=== PATIENT | female | born 1960 | race American Indian/Alaskan Native ===

== ENCOUNTER 2016-07-10 13:26 | Outpatient (CLI) | payer BC ==
[2016-07-10] MEDS ORDERED: NACL ONE (13:53)
--- NOTE | 2016-07-10 14:16 | Cat Scan Report ---
CTA CHEST: History: Chest pain Technique: Helical CT following IV contrast. Pulmonary embolus protocol. Sagittal and coronal reformatted images. Rotational MIP images. Findings: Compared to 09/25/15 exam which was positive for pulmonary emboli. Contrast bolus is satisfactory. No pulmonary embolus is identified. The thyroid gland, tracheobronchial tree, esophagus, heart, pericardium, mediastinal vessels, lung vidales and bony thorax are unremarkable. Impression: No evidence for pulmonary embolus. Unremarkable CT chest with contrast.
== END 2016-07-10 13:27 | disposition home or self-care (01) ==
LOC: CT 13:26
PROVIDERS: ATTEND Specialist
DX: I26.99 Other pulmonary embolism without acute cor pulmonale (principal)
CPT/HCPCS: 71275; Q9967

== ENCOUNTER 2016-08-11 08:21 | Outpatient (CLI) | payer BC ==
--- NOTE | 2016-08-12 13:37 | Vascular Lab Report ---
LOWER EXTREMITY VENOUS DUPLEX: REASON FOR EXAM: History of DVT. COMMENTS ON THE RIGHT: All veins visualized are freely compressible without evidence of internal echogenicity. Flow is spontaneous and phasic throughout. COMMENTS ON THE LEFT: Chronic nonocclusive deep venous stenosis is noted in the distal femoral vein. The remaining veins visualized are freely compressible without evidence of internal echogenicity. Spontaneous and phasic flow is present proximally. IMPRESSION: Chronic venous thrombosis in the left lower extremity
== END 2016-08-11 08:22 | disposition home or self-care (01) ==
LOC: VAS 08:21
PROVIDERS: ATTEND Specialist
DX: I82.503 Chronic embolism and thrombosis of unspecified deep veins of lower extremity, bilateral (principal)
CPT/HCPCS: 93970

== ENCOUNTER 2017-03-09 06:18 | Emergency (ER) | payer BC ==
[2017-03-09 07:10] LABS: Basophils % (Auto) 0.7 % (0.0-1.8); Hematocrit 41.7 % (30.3-42.9); Hemoglobin 13.7 gm/dl (10.1-14.3); Mean Corpuscular HGB Conc 33 % (30-34); Mean Corpuscular Hemoglobin 27 pg (28-32); Mean Corpuscular Volume 82 fl (79-97); Platelet Count 124 K/mm3 (140-440); Red Blood Count 5.09 M/mm3 (3.65-5.03); Red Cell Distribution Width 15.1 % (13.2-15.2); White Blood Count 5.2 K/mm3 (4.5-11.0)
[2017-03-09 07:20] LABS: Anion Gap 13 mmol/L; BUN/Creatinine Ratio 7.27; Blood Urea Nitrogen 8 mg/dL (7-17); Calcium 8.4 mg/dL (8.4-10.2); Carbon Dioxide 24 mmol/L (22-30); Glucose 91 mg/dL (65-100); INR 1.26 (0.87-1.13); Potassium 4.3 mmol/L (3.6-5.0); Sodium 144 mmol/L (137-145)
[2017-03-09 07:21] LABS: Partial Thromboplastin Time 27.4 Sec. (24.2-36.6)
--- NOTE | 2017-03-09 11:04 | Emergency Department Report ---
ED Female HPI - General Chief complaint: Urogenital-Female Stated complaint: BLOOD IN URINE Time Seen by Provider: 03/09/17 10:33 Source: patient Mode of arrival: Ambulatory Limitations: No Limitations - History of Present Illness Initial comments: 57-year-old female history of PE or DVT on Coumadin presented today was blood in the urine that she noticed this morning. Patient denied any hematemesis or hemoptysis no other complaints -: Sudden - Related Data Previous Rx's Medication Instructions Recorded Last Taken Type Pantoprazole [Protonix TAB] 20 mg PO QDAY #30 tablet. 10/06/15 Unknown Rx Warfarin [Coumadin] 5 mg PO DAILY@1700 #7 tablet 10/06/15 Unknown Rx AtorvaSTATin [Lipitor] 40 mg PO QHS 30 Days 02/11/16 Unknown Rx Enoxaparin [Lovenox] 90 mg SQ Q12HR 5 Days 02/11/16 Unknown Rx Indomethacin 50 mg PO Q8H #10 capsule 02/11/16 Unknown Rx Allergies Allergy/AdvReac Type Severity Reaction Status Date / Time No Known Allergies Allergy Unverified 10/20/13 16:34 ED Review of Systems ROS: Stated complaint: BLOOD IN URINE Other details as noted in HPI Comment: All other systems reviewed and negative Constitutional: denies: chills, fever Respiratory: denies: cough, shortness of breath Cardiovascular: denies: chest pain, palpitations Gastrointestinal: denies: abdominal pain, nausea, vomiting Skin: denies: rash ED Past Medical Hx - Past Medical History Previous Medical History?: Yes Hx Congestive Heart Failure: No Hx Diabetes: No Hx Pulmonary Embolism: Yes Hx Asthma: No Hx COPD: No Additional medical history: bilateral PE and L Leg DVT 09/2015 at [facility] - Surgical History Past Surgical History?: Yes Additional Surgical History: tubal ligation - Social History Smoking Status: Smoker, Current Status Unknown Substance Use Type: None - Medications Home Medications: Home Medications Medication Instructions Recorded Confirmed Last Taken Type Pantoprazole [Protonix TAB] 20 mg PO QDAY #30 tablet. 10/06/15 Unknown Rx Warfarin [Coumadin] 5 mg PO DAILY@1700 #7 tablet 10/06/15 Unknown Rx AtorvaSTATin [Lipitor] 40 mg PO QHS 30 Days 02/11/16 Unknown Rx Enoxaparin [Lovenox] 90 mg SQ Q12HR 5 Days 02/11/16 Unknown Rx Indomethacin 50 mg PO Q8H #10 capsule 02/11/16 Unknown Rx ED Physical Exam - General Limitations: No Limitations General appearance: alert, in no apparent distress - Eye Eye exam: Present: normal appearance - ENT ENT exam: Present: normal exam - Neck Neck exam: Present: normal inspection - Respiratory Respiratory exam: Present: normal lung sounds bilaterally. Absent: respiratory distress, wheezes, rales, rhonchi - Cardiovascular Cardiovascular Exam: Present: regular rate, normal rhythm, normal heart sounds - GI/Abdominal GI/Abdominal exam: Present: soft. Absent: tenderness, guarding, rebound - Extremities Exam Extremities exam: Present: normal inspection. Absent: pedal edema - Back Exam Back exam: Absent: CVA tenderness (R), CVA tenderness (L) - Neurological Exam Neurological exam: Present: alert, oriented X3, CN II-XII intact, normal gait - Skin Skin exam: Present: warm, intact ED Course Vital Signs 03/09/17 03/09/17 03/09/17 06:21 06:24 09:12 Temperature 98.2 F 98.2 F Pulse Rate 82 Respiratory 18 17 12 Rate Blood Pressure 102/74 102/74 O2 Sat by Pulse 99 Oximetry 03/09/17 03/09/17 03/09/17 09:15 09:30 09:45 Temperature Pulse Rate 68 70 73 Respiratory 18 22 20 Rate Blood Pressure 98/63 97/61 98/70 O2 Sat by Pulse 97 97 97 Oximetry 03/09/17 03/09/17 03/09/17 10:00 10:15 10:30 Temperature Pulse Rate 73 69 73 Respiratory 12 17 19 Rate Blood Pressure 101/65 94/60 104/67 O2 Sat by Pulse 97 97 97 Oximetry 03/09/17 03/09/17 03/09/17 10:49 11:00 11:15 Temperature Pulse Rate 73 68 66 Respiratory 18 11 L 19 Rate Blood Pressure 104/67 111/74 110/72 O2 Sat by Pulse 99 99 97 Oximetry 03/09/17 03/09/17 03/09/17 11:30 11:45 12:00 Temperature Pulse Rate 63 71 65 Respiratory 19 15 11 L Rate Blood Pressure 106/67 94/58 105/63 O2 Sat by Pulse 98 96 98 Oximetry 03/09/17 03/09/17 12:15 12:30 Temperature Pulse Rate 68 72 Respiratory 15 14 Rate Blood Pressure 109/71 96/63 O2 Sat by Pulse 98 98 Oximetry - Reevaluation(s) Reevaluation #1: 03/09/17 14:20 The patient stated this feeling better no blood in the urine for now no nausea no vomiting blood or bloody diarrhea. Tried to reach her primary care physician Dr. Barnes several times but no answer I advised the patient to increase her Coumadin to 15 mg today and tomorrow and to follow-up with his Dr. Barnes in the morning ED Medical Decision Making - Lab Data Result diagrams: 03/09/17 06:48 03/09/17 06:48 Critical care attestation.: If time is entered above; I have spent that time in minutes in the direct care of this critically ill patient, excluding procedure time. ED Disposition Clinical Impression: Hematuria Disposition: DC-01 TO HOME OR SELFCARE Is pt being admited?: No Condition: Stable Instructions: Warfarin (By mouth) Referrals: PRIMARY CARE, [Primary Care Provider] - 3-5 Days Forms: Work/School Release Form(ED)
[2017-03-09 11:39] LABS: Bacteria,Urine 1+ /HPF (Negative); Bilirubin,Urine NEG (Negative); Blood,Urine NEG (Negative); Ketones,Urine NEG (Negative); Leukocyte Esterase,Urine NEG (Negative); Nitrite,Urine NEG (Negative); Protein,Urine <15 mg/dL mg/dL (Negative); Urobilinogen,Urine < 2.0 mg/dL (<2.0); WBC,Urine < 1.0 /HPF (0.0-6.0)
[2017-03-09 14:33] VITALS: BP 90/47
== END 2017-03-09 14:37 | disposition home or self-care (01) ==
LOC: ED 06:18
DX: F31.9 Bipolar disorder, unspecified (principal)
CPT/HCPCS: 36415; 80048; 81001; 81025; 85025; 85610; 85730; 99283

== ENCOUNTER 2017-03-30 15:11 | Outpatient (CLI) | payer BC ==
--- NOTE | 2017-03-30 15:55 | Ultrasound Report ---
ULTRASOUND RENAL INDICATION: Hematuria. COMPARISON: None similar. FINDINGS: Renal sonography suggests normal renal contours and echotexture. No hydronephrosis. Preserved corticomedullary differentiation. RIGHT KIDNEY is 8.2 x 4 x 4.1 cm with cortical thickness of 0.9 cm. LEFT KIDNEY estimated at 10.1 x 5.1 x 5.5 cm with cortical thickness of 1.1 cm. URINARY BLADDER suboptimally distended and assessed. CONCLUSION: No acute renal sonographic abnormality, as described. Thank you for the opportunity to participate in this patient's care.
== END 2017-03-30 15:12 | disposition home or self-care (01) ==
LOC: US 15:11
PROVIDERS: ATTEND Specialist
DX: R31.9 Hematuria, unspecified (principal); N32.89 Other specified disorders of bladder
CPT/HCPCS: 76770

== ENCOUNTER 2021-05-14 21:51 | Emergency (ER) | payer BC, SELFPAY ==
--- NOTE | 2021-05-14 22:22 | Emergency Department Report ---
ED Shortness of Breath HPI - General Chief Complaint: Dyspnea/Respdistress Stated Complaint: LEG PAIN/SOB Time Seen by Provider: 05/14/21 22:05 Source: patient Mode of arrival: Ambulatory Limitations: No Limitations - History of Present Illness Initial Comments: 61-year-old -[place] female presented to the emergency room with chief complaint of shortness of breath. Patient reported that she was informed today by family member that she had labored breathing. Patient reported to them that this is how she breathes normally. She has a history of chronic heavy breathing. She has a history of pulmonary embolism in the past and she has been told if she has problem with her breathing she come to the emergency room for evaluation. Patient denies dyspnea on exertion, increased fatigue, chest pain, cough, fever, chills, nausea, vomiting diarrhea MD Complaint: shortness of breath Severity: mild - Related Data Home Oxygen Therapy: No Previous Rx's Medication Instructions Recorded Last Taken Type Pantoprazole [Protonix TAB] 20 mg PO QDAY #30 tablet. 10/06/15 Unknown Rx Warfarin [Coumadin] 5 mg PO DAILY@1700 #7 tablet 10/06/15 Unknown Rx AtorvaSTATin [Lipitor] 40 mg PO QHS 30 Days tablet 02/11/16 Unknown Rx Enoxaparin [Lovenox] 90 mg SQ Q12HR 5 Days syringe 02/11/16 Unknown Rx Indomethacin 50 mg PO Q8H #10 capsule 02/11/16 Unknown Rx Allergies Allergy/AdvReac Type Severity Reaction Status Date / Time No Known Allergies Allergy Verified 05/14/21 21:56 ED Review of Systems ROS: Stated complaint: LEG PAIN/SOB Other details as noted in HPI Comment: All other systems reviewed and negative Constitutional: no symptoms reported Eyes: denies: eye pain ENT: denies: ear pain Respiratory: shortness of breath. denies: cough, orthopnea, SOB with exertion, SOB at rest, stridor, wheezing Cardiovascular: denies: chest pain, palpitations, dyspnea on exertion, orthopnea Gastrointestinal: denies: abdominal pain, nausea, vomiting Genitourinary: denies: urgency, dysuria, frequency, hematuria Musculoskeletal: denies: back pain Neurological: denies: headache, weakness, abnormal gait Psychiatric: denies: anxiety, depression ED Past Medical Hx - Past Medical History Hx Congestive Heart Failure: No Hx Diabetes: No Hx Deep Vein Thrombosis: Yes Hx Pulmonary Embolism: Yes Hx Asthma: No Hx COPD: No Additional medical history: bilateral PE and L Leg DVT 09/2015 at [facility] - Surgical History Additional Surgical History: tubal ligation - Social History Smoking Status: Smoker, Current Status Unknown Substance Use Type: None - Medications Home Medications: Home Medications Medication Instructions Recorded Confirmed Last Taken Type Pantoprazole [Protonix TAB] 20 mg PO QDAY #30 tablet. 10/06/15 Unknown Rx Warfarin [Coumadin] 5 mg PO DAILY@1700 #7 tablet 10/06/15 Unknown Rx AtorvaSTATin [Lipitor] 40 mg PO QHS 30 Days tablet 02/11/16 Unknown Rx Enoxaparin [Lovenox] 90 mg SQ Q12HR 5 Days syringe 02/11/16 Unknown Rx Indomethacin 50 mg PO Q8H #10 capsule 02/11/16 Unknown Rx ED Physical Exam - General Limitations: No Limitations General appearance: alert, in no apparent distress - Head Head exam: Present: atraumatic, normocephalic, normal inspection - Eye Eye exam: Present: normal appearance, PERRL, EOMI Pupils: Present: normal accommodation - ENT ENT exam: Present: normal exam - Neck Neck exam: Present: normal inspection, full ROM - Respiratory Respiratory exam: Present: normal lung sounds bilaterally. Absent: respiratory distress, wheezes, rales, rhonchi, stridor - Cardiovascular Cardiovascular Exam: Present: regular rate - GI/Abdominal GI/Abdominal exam: Present: soft. Absent: distended, tenderness, guarding, rebound, rigid - Extremities Exam Extremities exam: Present: normal inspection, full ROM. Absent: tenderness - Back Exam Back exam: Present: normal inspection - Neurological Exam Neurological exam: Present: alert, oriented X3. Absent: altered - Psychiatric Psychiatric exam: Present: normal affect, normal mood. Absent: depressed, agitated - Skin Skin exam: Present: warm ED Course Vital Signs 05/14/21 21:53 Temperature 99.3 F Pulse Rate 92 H Respiratory 17 Rate Blood Pressure 140/97 [Right] O2 Sat by Pulse 100 Oximetry - Reevaluation(s) Reevaluation #1: 05/14/21 23:50 This patient presents to the emergency room complaining that she has labored breathing. On my initial evaluation she claimed to be awake alert oriented with no distress nontoxic-appearing. No respiratory distress. No wheeze on examination. I will obtain a chest x-ray to evaluate for possible CHF, pulmonary edema/congestion, pneumonia, pneumothorax, or any other intrathoracic abnormality. The chest x-ray result that it is normal with no acute findings. Patient was monitored in the emergency room. Vital signs remained stable, with no evidence of hypoxia. At the time of my last reevaluation, patient remained awake alert oriented distress with no distress. No respiratory distress. No conversational dyspnea. Patient stable for discharge ED Medical Decision Making - Lab Data Result diagrams: 05/14/21 22:36 05/14/21 22:36 Reviewed lab results - Radiology Data Radiology results: report reviewed Chest x-ray impression: No acute findings - Differential Diagnosis Anxiety, pneumonia, reactive airway disease Critical care attestation.: If time is entered above; I have spent that time in minutes in the direct care of this critically ill patient, excluding procedure time. ED Disposition Clinical Impression: SOB (shortness of breath) Disposition: 01 HOME / SELF CARE / HOMELESS Is pt being admited?: No Does the pt Need Aspirin: No Condition: Stable Instructions: Shortness of Breath, Adult, [id number], Shortness of Breath, Adult Referrals: BERNARD WOODS MD [Referring] - 3-5 Days Time of Disposition: 23:51 Print Language: BHUTANESE
--- NOTE | 2021-05-14 22:56 | XRay Report ---
CHEST 2 VIEWS INDICATION / CLINICAL INFORMATION: Shortness of breath and difficulty breathing for one week. Leg mag n. Prior history of blood clots/bilateral PTE. COMPARISON: 02/08/16. FINDINGS: SUPPORT DEVICES: None. HEART / MEDIASTINUM: The heart size and pulmonary vasculature are normal. LUNGS / PLEURA: No significant pulmonary or pleural abnormality. No pneumothorax. ADDITIONAL FINDINGS: No significant additional findings. IMPRESSION: No acute findings. Signer Name: Jones Bartlett MD Signed: 05/14/2021 10:51 PM Workstation Name: [id number]
[2021-05-14 23:01] LABS: Basophils % (Auto) 0.6 % (0.0-1.8); Eosinophils # (Auto) 0.2 K/mm3 (0.0-0.4); Eosinophils % (Auto) 3.6 % (0.0-4.3); Hematocrit 37.8 % (30.3-42.9); Hemoglobin 11.9 gm/dl (10.1-14.3); Lymphocytes # (Auto) 2.4 K/mm3 (1.2-5.4); Lymphocytes % (Auto) 36.9 % (13.4-35.0); Mean Corpuscular HGB Conc 32 % (30-34); Mean Corpuscular Volume 83 fl (79-97); Monocytes # (Auto) 0.6 K/mm3 (0.0-0.8); Monocytes % (Auto) 9.6 % (0.0-7.3); Platelet Count 136 K/mm3 (140-440); Red Blood Count 4.55 M/mm3 (3.65-5.03); Red Cell Distribution Width 14.6 % (13.2-15.2)
[2021-05-14 23:10] LABS: Albumin 3.4 g/dL (3.9-5); Calcium 8.6 mg/dL (8.4-10.2)
[2021-05-15 00:48] VITALS: BP 129/71
--- NOTE | 2021-05-15 09:59 | Electrocardiograph Report ---
[facility] Test Date: 2021-05-15 Test Time: 00:11:15 Pat Name: HARINI SERRANO Department: Room: Gender: F Diamond Cleaver: JOSE : 1960 Requested By: AKSHAT SWEENEY Order Number: [id number] Reading MD: Justin Vitale Measurements Intervals [place] Rate: 89 P: 107 WV: 166 QRS: 47 QRSD: 66 T: 48 QT: 377 QTc: 459 Interpretive Statements Sinus rhythm No previous ECG available for comparison Electronically Signed On 05-15-2021 9:58:51 EST by Justin Vitale
== END 2021-05-15 00:20 | disposition home or self-care (01) ==
LOC: ED 21:51
DX: R06.02 Shortness of breath (principal); Z86.718 Personal history of other venous thrombosis and embolism; I26.99 Other pulmonary embolism without acute cor pulmonale
CPT/HCPCS: 36415; 71046; 80053; 85025; 93005

== ENCOUNTER 2021-08-05 15:42 | Emergency (ER) | payer BC | END 2021-08-05 17:40 | disposition left against medical advice (07) | LOC: ED 15:42 | DX: R06.02 Shortness of breath (principal); Z53.21 Procedure and treatment not carried out due to patient leaving prior to being seen by health care provider ==

== ENCOUNTER 2021-08-06 16:12 | Inpatient (IN) | payer BC ==
--- NOTE | 2021-08-07 00:58 | XRay Report ---
XR chest routine 2V INDICATION / CLINICAL INFORMATION: sob. COMPARISON: 05/14/2021 FINDINGS: SUPPORT DEVICES: None. HEART /PULMONARY VASCULATURE: No significant abnormality. LUNGS / PLEURA: No significant pulmonary or pleural abnormality. No pneumothorax. ADDITIONAL FINDINGS: No significant additional findings. IMPRESSION: 1. No acute findings. Signer Name: Boubacar Sandoval MD Signed: 08/07/2021 12:53 AM Workstation Name: [id number]
[2021-08-07 01:33] LABS: Basophils # (Auto) 0.1 K/mm3 (0.0-0.1); Basophils % (Auto) 1.1 % (0.0-1.8); Eosinophils # (Auto) 0.3 K/mm3 (0.0-0.4); Eosinophils % (Auto) 6.2 % (0.0-4.3); Hematocrit 40.3 % (30.3-42.9); Hemoglobin 12.5 gm/dl (10.1-14.3); Lymphocytes # (Auto) 2.1 K/mm3 (1.2-5.4); Lymphocytes % (Auto) 37.9 % (13.4-35.0); Mean Corpuscular HGB Conc 31 % (30-34); Mean Corpuscular Volume 83 fl (79-97); Monocytes # (Auto) 0.6 K/mm3 (0.0-0.8); Monocytes % (Auto) 10.3 % (0.0-7.3); Platelet Count 183 K/mm3 (140-440); Red Blood Count 4.86 M/mm3 (3.65-5.03); Red Cell Distribution Width 14.4 % (13.2-15.2)
[2021-08-07 01:44] LABS: INR 0.81 (0.87-1.13)
[2021-08-07 01:45] LABS: Partial Thromboplastin Time 26.3 Sec. (24.2-36.6)
[2021-08-07 01:51] LABS: Alanine Aminotransferase 10 units/L (7-56); Albumin 3.6 g/dL (3.9-5); BUN/Creatinine Ratio 9; Blood Urea Nitrogen 11 mg/dL (7-17); Calcium 8.9 mg/dL (8.4-10.2); Hemolysis Index 1
--- NOTE | 2021-08-07 02:32 | Emergency Department Report ---
ED General Adult HPI - General Chief complaint: Upper Respiratory Infection Stated complaint: SHORTNESS OF BREATH Time Seen by Provider: 08/07/21 00:38 Source: patient Mode of arrival: Ambulatory Limitations: No Limitations - History of Present Illness Initial comments: Patient 61-year-old female with history of hypertension and PE who presents for shortness of breath x1 month. States she called her PCP today and was advised to present to ED to rule out PE. Patient denies dizziness headache there is no nausea no vomiting no active chest pain at this time. Patient is not currently on coagulation therapy. Patient does endorse cough that is productive of abdullahi thick. There is no fevers no chills patient is Covid vaccinated. Severity scale (0 -10): 2 - Related Data Previous Rx's Medication Instructions Recorded Last Taken Type Pantoprazole [Protonix TAB] 20 mg PO QDAY #30 tablet. 10/06/15 Unknown Rx Warfarin [Coumadin] 5 mg PO DAILY@1700 #7 tablet 10/06/15 Unknown Rx AtorvaSTATin [Lipitor] 40 mg PO QHS 30 Days tablet 02/11/16 Unknown Rx Enoxaparin [Lovenox] 90 mg SQ Q12HR 5 Days syringe 02/11/16 Unknown Rx Indomethacin 50 mg PO Q8H #10 capsule 02/11/16 Unknown Rx Allergies Allergy/AdvReac Type Severity Reaction Status Date / Time No Known Allergies Allergy Verified 05/14/21 21:56 ED Review of Systems ROS: Stated complaint: SHORTNESS OF BREATH Other details as noted in HPI Constitutional: malaise Eyes: denies: eye pain, eye discharge, vision change ENT: denies: ear pain, throat pain Respiratory: cough, shortness of breath Cardiovascular: denies: chest pain, palpitations Endocrine: no symptoms reported Gastrointestinal: denies: abdominal pain, nausea, vomiting, diarrhea Genitourinary: denies: urgency, dysuria, discharge Musculoskeletal: denies: back pain, joint swelling, arthralgia Skin: denies: rash, lesions Neurological: denies: headache, weakness, paresthesias Psychiatric: as per HPI Hematological/Lymphatic: denies: easy bleeding, easy bruising ED Past Medical Hx - Past Medical History Hx Congestive Heart Failure: No Hx Diabetes: No Hx Deep Vein Thrombosis: Yes Hx Pulmonary Embolism: Yes Hx Asthma: No Hx COPD: No Additional medical history: bilateral PE and L Leg DVT 09/2015 at [facility] - Surgical History Additional Surgical History: tubal ligation - Social History Smoking Status: Smoker, Current Status Unknown Substance Use Type: None - Medications Home Medications: Home Medications Medication Instructions Recorded Confirmed Last Taken Type Pantoprazole [Protonix TAB] 20 mg PO QDAY #30 tablet.dr 10/06/15 Unknown Rx Warfarin [Coumadin] 5 mg PO DAILY@1700 #7 tablet 10/06/15 Unknown Rx AtorvaSTATin [Lipitor] 40 mg PO QHS 30 Days tablet 02/11/16 Unknown Rx Enoxaparin [Lovenox] 90 mg SQ Q12HR 5 Days syringe 02/11/16 Unknown Rx Indomethacin 50 mg PO Q8H #10 capsule 02/11/16 Unknown Rx ED Physical Exam - General Limitations: No Limitations General appearance: alert, in no apparent distress - Head Head exam: Present: normocephalic, normal inspection - Eye Eye exam: Present: normal appearance, PERRL, EOMI Pupils: Present: normal accommodation - ENT ENT exam: Present: mucous membranes moist - Neck Neck exam: Present: normal inspection, full ROM. Absent: tenderness - Respiratory Respiratory exam: Present: normal lung sounds bilaterally, chest wall tenderness (Right anterior chest wall). Absent: respiratory distress, wheezes, rales, rhonchi, stridor - Cardiovascular Cardiovascular Exam: Present: regular rate, normal rhythm, normal heart sounds. Absent: systolic murmur, diastolic murmur, rubs, gallop - GI/Abdominal GI/Abdominal exam: Present: soft, normal bowel sounds. Absent: distended, tenderness, guarding, rebound, rigid, bruit, hernia - Rectal Rectal exam: Present: deferred - Extremities Exam Extremities exam: Present: normal inspection, full ROM, normal capillary refill. Absent: pedal edema, calf tenderness - Back Exam Back exam: Present: normal inspection, full ROM. Absent: CVA tenderness (R), CVA tenderness (L) - Neurological Exam Neurological exam: Present: alert, oriented X3, CN II-XII intact, normal gait - Psychiatric Psychiatric exam: Present: normal affect, normal mood - Skin Skin exam: Present: warm, dry, intact, normal color. Absent: rash ED Course Vital Signs 08/06/21 19:51 Temperature 98.8 F Pulse Rate 97 H Respiratory 17 Rate Blood Pressure 171/88 [Left] O2 Sat by Pulse 96 Oximetry ED Medical Decision Making - Lab Data Result diagrams: 08/07/21 01:02 08/07/21 01:02 Labs 08/07/21 08/07/21 08/07/21 01:02 01:02 01:02 WBC 5.6 RBC 4.86 Hgb 12.5 Hct 40.3 MCV 83 MCH 26 L MCHC 31 RDW 14.4 Plt Count 183 Lymph % (Auto) 37.9 H [place] % (Auto) 10.3 H Eos % (Auto) 6.2 H Baso % (Auto) 1.1 Lymph # (Auto) 2.1 [place] # (Auto) 0.6 Eos # (Auto) 0.3 Baso # (Auto) 0.1 Seg Neutrophils % 44.5 Seg Neutrophils # 2.5 PT 12.2 INR 0.81 L APTT 26.3 D-Dimer 1095.95 H Sodium 145 Potassium 3.9 Chloride 108.9 H Carbon Dioxide 24 Anion Gap 16 BUN 11 Creatinine 1.2 Estimated GFR 55 BUN/Creatinine Ratio 9 Glucose 123 H Calcium 8.9 Total Bilirubin < 0.20 AST 12 ALT 10 Alkaline Phosphatase 79 Troponin T < 0.010 Total Protein 5.8 L Albumin 3.6 L Albumin/Globulin Ratio 1.6 08/07/21 02:33 WBC RBC Hgb Hct MCV MCH MCHC RDW Plt Count Lymph % (Auto) [place] % (Auto) Eos % (Auto) Baso % (Auto) Lymph # (Auto) [place] # (Auto) Eos # (Auto) Baso # (Auto) Seg Neutrophils % Seg Neutrophils # PT INR APTT D-Dimer Sodium Potassium Chloride Carbon Dioxide Anion Gap BUN Creatinine Estimated GFR BUN/Creatinine Ratio Glucose Calcium Total Bilirubin AST ALT Alkaline Phosphatase Troponin T < 0.010 Total Protein Albumin Albumin/Globulin Ratio - Radiology Data Radiology results: report reviewed, image reviewed XR chest routine 2V INDICATION / CLINICAL INFORMATION: sob. COMPARISON: 05/14/2021 FINDINGS: SUPPORT DEVICES: None. HEART /PULMONARY VASCULATURE: No significant abnormality. LUNGS / PLEURA: No significant pulmonary or pleural abnormality. No pneumothorax. ADDITIONAL FINDINGS: No significant additional findings. IMPRESSION: 1. No acute findings. Signer Name: Ron Briseno MD Signed: 08/07/2021 12:53 AM Workstation Name: [id number] Transcribed By: PURVI Dictated By: RON BRISENO MD Electronically Authenticated By: RON BRISENO MD Signed Date/Time: 08/07/2152 DD/ TD/TT: - Medical Decision Making CTA confirms pulmonary embolus left lower extent of the pulmonary artery. Bud case with ED attending recommendation admit to hospitalist diagnosis PE. Consulted hospitalist at this time recommendation admit inpatient, heparin, admission hold orders will see patient at bedside to complete admission. Bud treatment plan with patient patient verbalized agreement and understanding with same. Patient admitted to inpatient hospitalist at this time. Patient is currently alert oriented x3 with no acute distress at this time. Critical care attestation.: If time is entered above; I have spent that time in minutes in the direct care of this critically ill patient, excluding procedure time. ED Disposition Clinical Impression: Pulmonary embolism Qualifiers: Pulmonary embolism type: unspecified Chronicity: acute Acute cor pulmonale presence: without acute cor pulmonale Qualified Code(s): I26.99 - Other pulmonary embolism without acute cor pulmonale Disposition: ADMITTED INPATIENT Is pt being admited?: Yes Does the pt Need Aspirin: No Condition: Stable Instructions: Pulmonary Embolism Referrals: PRIMARY CAREMD [Primary Care Provider] - 3-5 Days Time of Disposition: 04:21
--- NOTE | 2021-08-07 04:02 | Cat Scan Report ---
CT angio chest INDICATION / CLINICAL INFORMATION: Shortness of breath x 1 month. TECHNIQUE: Axial CT images were obtained through the chest after injection of 100 cc Omnipaque 350 IV contrast. 3 plane MIP and/or 3D reconstructions were produced. All CT scans at this location are per formed using CT dose reduction for ALARA by means of automated exposure control. COMPARISON: Chest radiograph from same day FINDINGS: PULMONARY ARTERIES: Bilateral pulmonary artery filling defects are present. Findings are greater on t he left with filling defects extending proximally to the distal left main pulmonary artery. Segmental and subsegmental thrombus demonstrated within the left upper lobe and left lower lobe. Mild segmenta l and subsegmental pulmonary artery filling defects within the right lower lobe. No discrete filling defects in the right middle lobe or right upper lobe. THORACIC AORTA: Moderate calcified and noncalcified plaque at the distal thoracic aorta and upper abd ominal aorta. No acute abnormality. HEART: No significant abnormality. No evidence of right heart strain. LYMPHADENOPATHY: No significant thoracic lymphadenopathy. LUNGS/PLEURA: Small perifissural nodules within the right middle lobe and right lower lobe likely ref lect intrapulmonary lymph nodes. No acute airspace disease. No pleural effusion or pneumothorax. OTHER FINDINGS: None. UPPER ABDOMEN: No acute findings. SKELETAL SYSTEM: No acute osseous findings. IMPRESSION: 1. Acute bilateral pulmonary emboli, greater on the left. Most proximal extension of the pulmonary em boli is within the distal left main pulmonary artery. There is only minimal involvement of the right. 2. No acute interstitial or airspace disease. CRITICAL RESULT: Time of Discovery (ASSESSMENT MANAGER/CDT): 08/07/2021 at 2:55 AM Time of Communication (ASSESSMENT MANAGER/CDT): 08/07/2021 at 2:57 AM Licensed Practitioner Receiving Report: Eladio Fitzgerald Read-Back Performed: Yes. Signer Name: Boubacar Sandoval MD Signed: 08/07/2021 3:58 AM Workstation Name: [id number]
[2021-08-07] MEDS ORDERED: HEPARIN 10,000 UNITS/10 ML VIAL IV ONE (04:05)
[2021-08-07] MEDS ORDERED: HEPARIN 10,000 UNITS/10 ML VIAL IV PRN (04:05)
[2021-08-07 04:29] LABS: Hematocrit 37.3 % (30.3-42.9); Hemoglobin 12.4 gm/dl (10.1-14.3)
[2021-08-07 04:38] LABS: INR 0.78 (0.87-1.13)
[2021-08-07 04:39] LABS: Partial Thromboplastin Time 24.9 Sec. (24.2-36.6)
[2021-08-07] MEDS: HEPARIN/ 0.45% NACL DRIP 25,000 UNIT/500 ML BAG IV SCH (05:21)
[2021-08-07] MEDS ORDERED: HYDROmorphone 1 MG/1 ML INJ IV PRN (05:30)
[2021-08-07] MEDS ORDERED: MORPHINE 2 MG/1 ML INJ IV PRN (05:30)
[2021-08-07] MEDS ORDERED: ALBUTEROL 2.5 MG/3 ML NEBU IH PRN (05:30)
[2021-08-07] MEDS ORDERED: ONDANSETRON 4 MG/2 ML INJ IV PRN (05:30)
[2021-08-07] MEDS ORDERED: ACETAMINOPHEN 325 MG TAB PO PRN (05:30)
--- NOTE | 2021-08-07 05:37 | History and Physical Report ---
History of Present Illness Date of examination: 08/07/21 Date of admission: 08/07/21 Chief complaint: Shortness of breath History of present illness: 61-year-old female with history of hypertension and PE who presents for shortness of breath x1 month. States she called her PCP today and was advised to present to ED to rule out PE. Patient denies dizziness headache there is no nausea no vomiting no active chest pain at this time. Patient is not currently on coagulation therapy. Patient does endorse cough that is productive of abdullahi thick. There is no fevers no chills patient is Covid vaccinated. In the emergency room CTA of the chest showed acute bilateral pulmonary emboli, greater on the left. Most proximal extension of the pulmonary embolism is withi n the distal left main pulmonary artery. There is only minimal involvement of the right. 's were going to admit the patient I put the patient on heparin drip. Will consult pulmonary for evaluation Past History Past Medical History: DVT (bilateral PE and L Leg DVT 09/2015 at [facility]), hypertension, other (Pulmonary embolism) Past Surgical History: Other (Tubal ligation) Social history: other (Smoker, current status unknown) Medications and Allergies Allergies Allergy/AdvReac Type Severity Reaction Status Date / Time No Known Allergies Allergy Verified 05/14/21 21:56 Home Medications Medication Instructions Recorded Confirmed Last Taken Type Pantoprazole [Protonix TAB] 20 mg PO QDAY #30 tablet. 10/06/15 Unknown Rx Warfarin [Coumadin] 5 mg PO DAILY@1700 #7 tablet 10/06/15 Unknown Rx AtorvaSTATin [Lipitor] 40 mg PO QHS 30 Days tablet 02/11/16 Unknown Rx Enoxaparin [Lovenox] 90 mg SQ Q12HR 5 Days syringe 02/11/16 Unknown Rx Indomethacin 50 mg PO Q8H #10 capsule 02/11/16 Unknown Rx Active Meds: Active Medications Acetaminophen (Acetaminophen 325 Mg Tab) 650 mg PO Q4H PRN PRN Reason: Pain MILD(1-3)/Fever >100.5/BLACKMAN Albuterol (Albuterol 2.5 Mg/3 Ml Nebu) 2.5 mg IH Q3HRT PRN PRN Reason: Shortness Of Breath Albuterol/Ipratropium (Ipratropium/Albuterol Sulfate 3 Ml Ampul.Neb) 1 ampul IH Q6HRT JEFF Atorvastatin Calcium (Atorvastatin 40 Mg Tab) 40 mg PO QHS [facility] Famotidine (Famotidine 20 Mg Tab) 20 mg PO BID [facility] Heparin Sodium (Porcine) (Heparin 10,000 Units/10 Ml Vial) 3,800 unit 40 unit/kg (3800 unit) IV Q6H PRN PRN Reason: Anti-Xa Assay < 0.1 units/ml Hydromorphone HCl (Hydromorphone 1 Mg/1 Ml Inj) 0.5 mg IV Q3H PRN PRN Reason: Pain , Severe (7-10) Heparin Sodium/Sodium Chloride (Heparin/ 0.45% Nacl-25,000 Unit/500 Ml) 25,000 unit in 500 mls @ 29 mls/hr IV TITR JEFF; Protocol Last Admin: 08/07/21 05:21 Dose: 1,450 units/hr, 29 mls/hr Miscellaneous Medication (Indomethacin [Indomethacin]) 50 mg PO Q8H [facility] Morphine Sulfate (Morphine 2 Mg/1 Ml Inj) 2 mg IV Q4H PRN PRN Reason: Pain, Moderate (4-6) Ondansetron HCl (Ondansetron 4 Mg/2 Ml Inj) 4 mg IV Q8H PRN PRN Reason: Nausea And Vomiting Sodium Chloride (Sodium Chloride 0.9% 10 Ml Flush Syringe) 10 ml IV PRN PRN PRN Reason: LINE FLUSH Sodium Chloride (Sodium Chloride 0.9% 10 Ml Flush Syringe) 10 ml IV BID [facility] Sodium Chloride (Sodium Chloride 0.9% 10 Ml Flush Syringe) 10 ml IV PRN PRN PRN Reason: LINE FLUSH Review of Systems Cardiovascular: shortness of breath, dyspnea on exertion Respiratory: cough, shortness of breath, dyspnea on exertion Exam - Constitutional Vitals: Temp Pulse Resp BP Pulse Ox 98.8 F 87 16 125/65 98 08/06/21 19:51 08/07/21 05:32 08/07/21 05:32 08/07/21 05:32 08/07/21 05:32 General appearance: Present: no acute distress, well-nourished - EENT Eyes: Present: PERRL ENT: hearing intact, clear oral mucosa - Neck Neck: Present: supple, normal ROM - Respiratory Respiratory effort: normal Respiratory: bilateral: diminished - Cardiovascular Heart Sounds: Present: S1 & S2. Absent: rub, click - Extremities Extremities: pulses symmetrical, No edema Peripheral Pulses: within normal limits - Abdominal General gastrointestinal: Present: soft, non-tender, non-distended, normal bowel sounds Female genitourinary: Present: normal - Integumentary Integumentary: Present: clear, warm, dry - Musculoskeletal Musculoskeletal: gait normal, strength equal bilaterally - Psychiatric Psychiatric: appropriate mood/affect, intact judgment & insight - Neurologic Neurologic: CNII-XII intact, moves all extremities HEART Score - HEART Score Troponin: Troponin T < 0.010 ng/mL (0.00-0.029) 08/07/21 02:33 Results - Labs CBC & Chem 7: 08/07/21 04:13 08/07/21 01:02 Labs: Laboratory Last Values WBC 5.6 K/mm3 (4.5-11.0) 08/07/21 01:02 RBC 4.86 M/mm3 (3.65-5.03) 08/07/21 01:02 Hgb 12.4 gm/dl (10.1-14.3) 08/07/21 04:13 Hct 37.3 % (30.3-42.9) 08/07/21 04:13 MCV 83 fl (79-97) 08/07/21 01:02 MCH 26 pg (28-32) L 08/07/21 01:02 MCHC 31 % (30-34) 08/07/21 01:02 RDW 14.4 % (13.2-15.2) 08/07/21 01:02 Plt Count 194 K/mm3 (140-440) 08/07/21 04:13 Lymph % (Auto) 37.9 % (13.4-35.0) H 08/07/21 01:02 [place] % (Auto) 10.3 % (0.0-7.3) H 08/07/21 01:02 Eos % (Auto) 6.2 % (0.0-4.3) H 08/07/21 01:02 Baso % (Auto) 1.1 % (0.0-1.8) 08/07/21 01:02 Lymph # (Auto) 2.1 K/mm3 (1.2-5.4) 08/07/21 01:02 [place] # (Auto) 0.6 K/mm3 (0.0-0.8) 08/07/21 01:02 Eos # (Auto) 0.3 K/mm3 (0.0-0.4) 08/07/21 01:02 Baso # (Auto) 0.1 K/mm3 (0.0-0.1) 08/07/21 01:02 Seg Neutrophils % 44.5 % (40.0-70.0) 08/07/21 01:02 Seg Neutrophils # 2.5 K/mm3 (1.8-7.7) 08/07/21 01:02 PT 11.8 Sec. (12.2-14.9) L 08/07/21 04:13 INR 0.78 (0.87-1.13) L 08/07/21 04:13 APTT 24.9 Sec. (24.2-36.6) 08/07/21 04:13 D-Dimer 1095.95 ng/mlDDU (0-234) H 08/07/21 01:02 Sodium 145 mmol/L (137-145) 08/07/21 01:02 Potassium 3.9 mmol/L (3.6-5.0) 08/07/21 01:02 Chloride 108.9 mmol/L (98-107) H 08/07/21 01:02 Carbon Dioxide 24 mmol/L (22-30) 08/07/21 01:02 Anion Gap 16 mmol/L 08/07/21 01:02 BUN 11 mg/dL (7-17) 08/07/21 01:02 Creatinine 1.2 mg/dL (0.6-1.2) 08/07/21 01:02 Estimated GFR 55 ml/min 08/07/21 01:02 BUN/Creatinine Ratio 9 % 08/07/21 01:02 Glucose 123 mg/dL (65-100) H 08/07/21 01:02 Calcium 8.9 mg/dL (8.4-10.2) 08/07/21 01:02 Total Bilirubin < 0.20 mg/dL (0.1-1.2) 08/07/21 01:02 AST 12 units/L (5-40) 08/07/21 01:02 ALT 10 units/L (7-56) 08/07/21 01:02 Alkaline Phosphatase 79 units/L (35-129) 08/07/21 01:02 Troponin T < 0.010 ng/mL (0.00-0.029) 08/07/21 02:33 Total Protein 5.8 g/dL (6.3-8.2) L 08/07/21 01:02 Albumin 3.6 g/dL (3.9-5) L 08/07/21 01:02 Albumin/Globulin Ratio 1.6 % 08/07/21 01:02 - Imaging and Cardiology CT scan - chest: report reviewed Assessment and Plan VTE prophylaxis?: Chemical Plan of care discussed with patient/family: Yes - Patient Problems (1) Pulmonary embolism Current Visit: Yes Status: Acute Qualifiers: Pulmonary embolism type: unspecified Chronicity: acute Acute cor pulmonale presence: without acute cor pulmonale Qualified Code(s): I26.99 - Other pulmonary embolism without acute cor pulmonale Plan to address problem: Admit the patient to the medical telemetry. Oxygen per nasal cannula 3 L/min. DuoNeb by nebulizer every 4 hours. Heparin drip as per protocol. Consult pulmonary. (2) Hypertension Current Visit: Yes Status: Acute Plan to address problem: Hydralazine 10 mg IV every 6 hours as needed. We will continue the home medication (3) Deep venous thrombosis Current Visit: No Status: Acute Plan to address problem: Oxygen per nasal cannula 3 L/min. DuoNeb by nebulizer every 4 hours. Heparin drip as per protocol. Consult pulmonary. (4) Dyspnea Current Visit: No Status: Acute Plan to address problem: Oxygen via nasal cannula 3 L/min. DuoNeb by nebulizer every 4 hours. Albuterol via nebulizer every 4 hours as needed (5) Tobacco abuse Current Visit: No Status: Chronic Plan to address problem: We counseled the patient regarding quitting smoking. We will put the patient on nicotine patch if needed (6) DVT prophylaxis Current Visit: Yes Status: Acute Plan to address problem: Heparin drip for DVT prophylaxis. Pepcid 20 mg p.o. twice daily for GI prophylaxis. Patient is a full code
[2021-08-07] MEDS ORDERED: INDOMETHACIN 25 MG CAP PO SCH (06:00)
[2021-08-07] MEDS: IPRATROPIUM/ALBUTEROL SULFATE 3 ML AMPUL.NEB IH SCH ×3 (08:20→20:21)
--- NOTE | 2021-08-07 09:16 | Consultation ---
History of Present Illness Consult date: 08/07/21 Reason for consult: pulmonary embolism History of present illness: 61 y/o female admitted with shortness of breath. Found to have bilateral PE, burden worse on the left compared to the right but non-occlusive. Patient states that she has been off anticoagulation since 2019. She was following my partner Dr. Barnes up until then when it was decided she did not need anticoagulation any further. Patient did not follow up with heme as instructed back in . She also does not know if she had a hypercoag work up done as an outpatient. Remainder of the review is negative. She is currently on heparin and anxious to go home. She had previously been on Coumadin for anticoagulation. Past History Past Medical History: DVT (bilateral PE and L Leg DVT 09/2015 at [facility]), hypertension, other (Pulmonary embolism) Past Surgical History: Other (Tubal ligation) Social history: other (Smoker, current status unknown) Family history: other (Brothers with VTE) Medications and Allergies Allergies Allergy/AdvReac Type Severity Reaction Status Date / Time No Known Allergies Allergy Verified 08/07/21 07:51 Home Medications Medication Instructions Recorded Confirmed Last Taken Type Pantoprazole [Protonix TAB] 20 mg PO QDAY #30 tablet. 10/06/15 Unknown Rx Warfarin [Coumadin] 5 mg PO DAILY@1700 #7 tablet 10/06/15 Unknown Rx AtorvaSTATin [Lipitor] 40 mg PO QHS 30 Days tablet 02/11/16 Unknown Rx Enoxaparin [Lovenox] 90 mg SQ Q12HR 5 Days syringe 02/11/16 Unknown Rx Indomethacin 50 mg PO Q8H #10 capsule 02/11/16 Unknown Rx Active Meds: Active Medications Acetaminophen (Acetaminophen 325 Mg Tab) 650 mg PO Q4H PRN PRN Reason: Pain MILD(1-3)/Fever >100.5/[place] Albuterol (Albuterol 2.5 Mg/3 Ml Nebu) 2.5 mg IH Q3HRT PRN PRN Reason: Shortness Of Breath Albuterol/Ipratropium (Ipratropium/Albuterol Sulfate 3 Ml Ampul.Neb) 1 ampul IH Q6HRT JEFF Last Admin: 08/07/21 08:20 Dose: Not Given Atorvastatin Calcium (Atorvastatin 40 Mg Tab) 40 mg PO QHS JEFF Famotidine (Famotidine 20 Mg Tab) 20 mg PO BID [facility] Heparin Sodium (Porcine) (Heparin 10,000 Units/10 Ml Vial) 3,800 unit 40 unit/kg (3800 unit) IV Q6H PRN PRN Reason: Anti-Xa Assay < 0.1 units/ml Heparin Sodium/Sodium Chloride (Heparin/ 0.45% Nacl-25,000 Unit/500 Ml) 25,000 unit in 500 mls @ 29 mls/hr IV TITR [facility]; Protocol Last Admin: 08/07/21 05:21 Dose: 1,450 units/hr, 29 mls/hr Ondansetron HCl (Ondansetron 4 Mg/2 Ml Inj) 4 mg IV Q8H PRN PRN Reason: Nausea And Vomiting Sodium Chloride (Sodium Chloride 0.9% 10 Ml Flush Syringe) 10 ml IV PRN PRN PRN Reason: LINE FLUSH Sodium Chloride (Sodium Chloride 0.9% 10 Ml Flush Syringe) 10 ml IV BID [facility] Review of Systems All systems: negative Physical Examination Vital signs: Vital Signs Temp Pulse Resp BP Pulse Ox 98.8 F 97 H 17 171/88 96 08/06/21 19:51 08/06/21 19:51 08/06/21 19:51 08/06/21 19:51 08/06/21 19:51 General appearance: no acute distress, alert, other (obese) Eyes: non-icteric ENT: oropharynx moist Neck: supple, no lymphadenopathy, no JVD Effort: normal Ascultation: Bilateral: clear Percussion: Bilateral: not dull Tactile fremitus: Bilateral: normal Cardiovascular: regular rate and rhythm Gastrointestinal: normoactive bowel sounds, soft, non-tender Extremities: no cyanosis, no edema, pink and warm, pulses normal Musculoskeletal: no deformities normal mental status, non-focal exam Results - Laboratory Findings CBC and BMP: 08/07/21 04:13 08/07/21 01:02 PT/INR, D-dimer PT 11.8 Sec. (12.2-14.9) L 08/07/21 04:13 INR 0.78 (0.87-1.13) L 08/07/21 04:13 D-Dimer 1095.95 ng/mlDDU (0-234) H 08/07/21 01:02 Abnormal lab findings: Abnormal Labs 08/07/21 08/07/2122 01:02 01:02 01:02 MCH 26 L Lymph % (Auto) 37.9 H [place] % (Auto) 10.3 H Eos % (Auto) 6.2 H PT INR 0.81 L D-Dimer 1095.95 H Chloride 108.9 H Glucose 123 H Total Protein 5.8 L Albumin 3.6 L 08/07/21 04:13 MCH Lymph % (Auto) [place] % (Auto) Eos % (Auto) PT 11.8 L INR 0.78 L D-Dimer Chloride Glucose Total Protein Albumin - Diagnostic Findings CT scan - chest: image reviewed (Agree with rads read. Lung parenchyma is good) Assessment and Plan 61 y/o female with prior history of VTE of unknown etiology at that time admitted with recurrent pulmonary embolism. 1. Agree with heparin drip 2. Transition to oral therapy soon 3. Can consult vascular but likely not a candidate/need for ekos 4. Needs echo to see if patient has pulmonary HTN related to this or any evidence of right heart strain 5. Patient anxious to go. Please have CM see her to find out her insurance and other resources. This will help to determine what form of oral anticoagulation we can discharge home. Long discussion with patient at bedside. She is going to be on lifelong anticoagulation. However she needs hypercoag work up if not done as this could be hereditary. We go to office and review my partners records as well. Thank you for this consult.
[2021-08-07] MEDS: FAMOTIDINE 20 MG TAB PO SCH ×2 (10:46→21:31)
--- NOTE | 2021-08-07 21:17 | Event Note ---
Date: 08/07/21 Progress note: 61-year-old female with PMH of obesity, hypertension and PE in 2016 for which she took Coumadin for 2 years and discontinued as per physician recommendations presents with 3-week history of progressively worsening cough and dyspnea. At about the same time, patient tripped and suffered a fall and bruised her left lower extremity which resolved over several days. Patient also gives family history of 2 brothers who suffered thromboembolism. In ED, CTA showed acute bilateral segmental and subsegmental pulmonary emboli, greater on the left. Most proximal extension of the pulmonary embolism is within the distal left main pulmonary artery. There is only minimal involvement of the right. Patient started on supplemental O2 as well as heparin infusion. Patient denies chest pains, palpitations, lightheadedness or syncopal episodes. No fever or chills. No hemoptysis. Patient is currently resting well and hemodynamically stable. She also started feeling better. Cough better. Fully alert and oriented. No pallor. Oral mucosa moist. Neck supple. Lungs clear. Heart regular rhythm. Abdomen soft and nontender. Obese. Extremities no edema. No abrasions noted in left lower extremity. No significant swelling or stiffness left lower extremity. Pedal pulses intact. Neuro exam nonfocal. Assessment: Recurrent pulmonary embolism, second episode First episode was diagnosed in 2016 and treated with Coumadin for 2 years by her physician Strong family history of thromboembolism, 2 brothers suffered this. Patient history of tripping, falling and sustaining contusion to left lower extremity approximately about 3 weeks ago Patient developed worsening cough and dyspnea at approximately the same time. Concerning for trauma triggering left lower extremity DVT No prolonged car/air travel, not on control pills History of hypertension Obesity Smokes 1 to 2 cigarettes daily. Denies history of asthma or chronic lung disease. No prolonged car/air travel, not on control pills Plan: Patient remains hemodynamically stable. Continue heparin infusion for now She will need to continue anticoagulation lifelong since this is a second episode with a strong family history. Ordered a hypercoagulable panel, echocardiogram and lower extremity venous duplex Patient was unable to afford Xarelto due to high co-pay in 2016 and chose warfarin. We will request case packer to help with the preferred formulary as per her health insurance with regard to coverage of DOA Pulmonary recommendations appreciated. Discussed with the patient in detail
[2021-08-08] MEDS: HEPARIN/ 0.45% NACL DRIP 25,000 UNIT/500 ML BAG IV SCH (03:09)
[2021-08-08] MEDS: IPRATROPIUM/ALBUTEROL SULFATE 3 ML AMPUL.NEB IH SCH ×4 (04:10→21:34)
[2021-08-08 06:16] LABS: Basophils % (Auto) 0.9 % (0.0-1.8); Eosinophils # (Auto) 0.3 K/mm3 (0.0-0.4); Eosinophils % (Auto) 5.4 % (0.0-4.3); Hematocrit 40.2 % (30.3-42.9); Hemoglobin 12.6 gm/dl (10.1-14.3); Lymphocytes # (Auto) 1.9 K/mm3 (1.2-5.4); Lymphocytes % (Auto) 38.7 % (13.4-35.0); Mean Corpuscular HGB Conc 31 % (30-34); Mean Corpuscular Volume 83 fl (79-97); Monocytes # (Auto) 0.5 K/mm3 (0.0-0.8); Monocytes % (Auto) 9.8 % (0.0-7.3); Platelet Count 187 K/mm3 (140-440); Red Blood Count 4.85 M/mm3 (3.65-5.03); Red Cell Distribution Width 14.9 % (13.2-15.2)
[2021-08-08 06:35] LABS: BUN/Creatinine Ratio 9; Blood Urea Nitrogen 9 mg/dL (7-17); Calcium 8.3 mg/dL (8.4-10.2); Hemolysis Index 3
--- NOTE | 2021-08-08 10:37 | Electrocardiograph Report ---
[facility] Test Date: 2021-08-08 Test Time: 07:11:13 Pat Name: HARINI SERRANO Department: Room: A460 1 Gender: F Field Service Specialist: STORM : 1960 Requested By: JOSE ANTONIO CHAO Order Number: [id number] Reading MD: Justin Vitale Measurements Intervals [place] Rate: 73 P: 51 ID: [id number] QRS: 57 QRSD: 71 T: 70 QT: 429 QTc: 473 Interpretive Statements Sinus rhythm Compared to ECG 05/15/2021 00:11:15 no significant change noted. Electronically Signed On 08-08-2021 10:36:50 EST by Justin Vitale
--- NOTE | 2021-08-08 11:44 | Progress Note ---
Assessment and Plan 61 y/o female with prior history of VTE of unknown etiology at that time admitted with recurrent pulmonary embolism. 08/08/21: Patient off floor for echo. Follow up results. Wean FiO2 to off. Oral anticoagulation. 1. Agree with heparin drip 2. Transition to oral therapy soon 3. Can consult vascular but likely not a candidate/need for ekos 4. Needs echo to see if patient has pulmonary HTN related to this or any evidence of right heart strain 5. Patient anxious to go. Please have CM see her to find out her insurance and other resources. This will help to determine what form of oral anticoagulation we can discharge home. Long discussion with patient at bedside. She is going to be on lifelong anticoagulation. However she needs hypercoag work up if not done as this could be hereditary. We go to office and review my partners records as well. Thank you for this consult. Subjective Date of service: 08/08/21 Interval history: Going down for echo Objective Vital Signs - 12hr 08/08/21 08/08/21 08/08/21 04:06 05:23 08:00 Temperature 98.1 F Pulse Rate 86 Pulse Rate [ 72 Anterior Bilateral Throughout] Respiratory 20 Rate Respiratory 18 Rate [Anterior Bilateral Throughout] Blood Pressure 139/92 O2 Sat by Pulse 100 97 Oximetry 08/08/21 08/08/21 09:32 11:22 Temperature Pulse Rate Pulse Rate [ Anterior Bilateral Throughout] Respiratory Rate Respiratory Rate [Anterior Bilateral Throughout] Blood Pressure O2 Sat by Pulse 97 97 Oximetry Constitutional: no acute distress, alert, other (obese) Eyes: non-icteric ENT: oropharynx moist Neck: supple, no lymphadenopathy, no JVD Effort: normal Ascultation: Bilateral: clear Percussion: Bilateral: not dull Tactile fremitus: Bilateral: normal Cardiovascular: regular rate and rhythm Gastrointestinal: normoactive bowel sounds, soft, non-tender Extremities: no cyanosis, no edema, pink and warm, pulses normal Neurologic: normal mental status, non-focal exam CBC and BMP: 08/09/21 04:50 08/08/21 05:41 ABG, PT/INR, D-dimer: PT/INR, D-dimer PT 11.8 Sec. (12.2-14.9) L 08/07/21 04:13 INR 0.78 (0.87-1.13) L 08/07/21 04:13 D-Dimer 1095.95 ng/mlDDU (0-234) H 08/07/21 01:02 Abnormal lab findings: Abnormal Labs 08/07/21 08/07/21 08/07/21 01:02 01:02 01:02 MCH 26 L Lymph % (Auto) 37.9 H [place] % (Auto) 10.3 H Eos % (Auto) 6.2 H PT INR 0.81 L D-Dimer 1095.95 H Heparin Anti-Xa Level Chloride 108.9 H Carbon Dioxide Glucose 123 H Calcium Total Protein 5.8 L Albumin 3.6 L 08/07/21 08/07/21 08/07/21 04:13 09:39 21:22 MCH Lymph % (Auto) [place] % (Auto) Eos % (Auto) PT 11.8 L INR 0.78 L D-Dimer Heparin Anti-Xa Level 0.16 L 0.73 H Chloride Carbon Dioxide Glucose Calcium Total Protein Albumin 08/08/21 08/08/21 08/08/21 05:41 05:41 05:41 MCH 26 L Lymph % (Auto) 38.7 H [place] % (Auto) 9.8 H Eos % (Auto) 5.4 H PT INR D-Dimer Heparin Anti-Xa Level 1.13 H Chloride 108.5 H Carbon Dioxide 20 L Glucose 112 H Calcium 8.3 L Total Protein Albumin
[2021-08-08] MEDS: FAMOTIDINE 20 MG TAB PO SCH ×2 (13:06→21:04)
--- NOTE | 2021-08-08 14:47 | Vascular Lab Report ---
DUPLEX DOPPLER LOWER EXTREMITY VEINS, BILATERAL INDICATION / CLINICAL INFORMATION: Acute UTI, rule out DVT. TECHNIQUE: Duplex doppler imaging was performed through the veins of both lower extremities using meka ous compression and other maneuvers. COMPARISON: Bilateral lower extremity venous doppler 08/11/2016. FINDINGS: RIGHT COMMON FEMORAL VEIN: Negative. RIGHT FEMORAL VEIN: Negative. RIGHT POPLITEAL VEIN: Negative. RIGHT CALF VEINS: Negative. LEFT COMMON FEMORAL VEIN: Negative. LEFT FEMORAL VEIN: Negative.Previously visualized chronic thrombus is not identified. LEFT POPLITEAL VEIN: Negative. LEFT CALF VEINS: Acute occlusive thrombus within the peroneal veins. ADDITIONAL FINDINGS: None. IMPRESSION: 1. Occlusive DVT within the left peroneal veins. 2. Previously visualized chronic thrombus within the left femoral vein is not identified on today's e xam. The results were communicated by the transfer station attendant to MILLER Boyle at 12:08. Scribed by: Silvana Thomas RDMS, ELMER, JARETT Scribed: 08/08/2021 12:27 PM I have reviewed the images, agree with this report, and edited this report as needed. Signer Name: Chaim Ngo MD Signed: 08/08/2021 2:42 PM Workstation Name: [id number]
--- NOTE | 2021-08-08 19:34 | Progress Note ---
Assessment and Plan Assessment and plan: 61-year-old female with PMH of obesity, hypertension and PE in 2016 for which she took Coumadin for 2 years and discontinued as per physician recommendations presents with 3-week history of progressively worsening cough and dyspnea. At about the same time, patient tripped and suffered a fall and bruised her left lower extremity which resolved over several days. Patient also gives family history of 2 brothers who suffered thromboembolism. In ED, CTA showed acute bilateral segmental and subsegmental pulmonary emboli, greater on the left. Most proximal extension of the pulmonary embolism is within the distal left main pulmonary artery. There is only minimal involvement of the right. Patient started on supplemental O2 as well as heparin infusion. Patient denies chest pains, palpitations, lightheadedness or syncopal episodes. No fever or chills. No hemoptysis. Patient is currently resting well and hemodynamically stable. She also started feeling better. Cough better. Fully alert and oriented. No pallor. Oral mucosa moist. Neck supple. Lungs clear. Heart regular rhythm. Abdomen soft and nontender. Obese. Extremities no edema. No abrasions noted in left lower extremity. No significant swelling or stiffness left lower extremity. Pedal pulses intact. Neuro exam nonfocal. Assessment: Recurrent pulmonary embolism, second episode First episode was diagnosed in 2016 and treated with Coumadin for 2 years by her physician Strong family history of thromboembolism, 2 brothers suffered this. Patient history of tripping, falling and sustaining contusion to left lower extremity approximately about 3 weeks ago Patient developed worsening cough and dyspnea at approximately the same time. Concerning for trauma triggering left lower extremity DVT. Ultrasound reveals left peroneal vein DVT. No prolonged car/air travel, not on control pills Echocardiogram unremarkablemild LVH, LVEF 55%, RV normal. No valvular dysfunction. No evidence of right heart strain. History of hypertension Obesity Smokes 1 to 2 cigarettes daily. Denies history of asthma or chronic lung disease. No prolonged car/air travel, not on control pills Plan: Patient remains hemodynamically stable. Continue heparin infusion for now She will need to continue anticoagulation lifelong since this is a second episode with a strong family history. Ordered a hypercoagulable panel Patient was unable to afford Xarelto due to high co-pay in 2016 and chose warfarin. We requested director of casework services to help with the preferred formulary as per her health insurance with regard to coverage of DOA. clinical manager home care provided patient with a discount co-pay card from the Eliquis professional fee coder, per CM patient is to only pay $10 co-pay monthly. Pulmonary recommendations appreciated. Discussed with the patient in detail and director of casework services History Interval history: Patient mentioned the heparin infusion and to use of O2. She reports improvement of cough and dyspnea. Hemodynamically stable. No palpitations, lightheadedness, hemoptysis. Ultrasound showed (April DVT. Echo unremarkable with mild LVH, EF 55%, no evidence of right heart strain. Hospitalist Physical - Constitutional Vitals: Temp Pulse Resp BP Pulse Ox 98.1 F 77 14 139/92 97 08/08/21 04:06 08/08/21 14:00 08/08/21 14:00 08/08/21 04:06 08/08/21 11:22 General appearance: Present: no acute distress, obese - EENT Eyes: Present: PERRL ENT: clear oral mucosa - Neck Neck: Present: supple, other (No JVD) - Respiratory Respiratory effort: normal Respiratory: bilateral: CTA - Cardiovascular Rhythm: regular - Extremities Extremities: No edema (No calf swelling or tenderness.) - Abdominal General gastrointestinal: soft, non-tender - Integumentary Integumentary: Absent: rash - Psychiatric Psychiatric: appropriate mood/affect - Neurologic Neurologic: no focal deficits, moves all extremities HEART Score - HEART Score Troponin: Troponin T < 0.010 ng/mL (0.00-0.029) 08/07/21 02:33 Results - Labs CBC & Chem 7: 08/09/21 04:50 08/08/21 05:41 Labs: Laboratory Last Values WBC 5.0 K/mm3 (4.5-11.0) 08/08/21 05:41 RBC 4.85 M/mm3 (3.65-5.03) 08/08/21 05:41 Hgb 12.6 gm/dl (10.1-14.3) 08/08/21 05:41 Hct 40.2 % (30.3-42.9) 08/08/21 05:41 MCV 83 fl (79-97) 08/08/21 05:41 MCH 26 pg (28-32) L 08/08/21 05:41 MCHC 31 % (30-34) 08/08/21 05:41 RDW 14.9 % (13.2-15.2) 08/08/21 05:41 Plt Count 187 K/mm3 (140-440) 08/08/21 05:41 Lymph % (Auto) 38.7 % (13.4-35.0) H 08/08/21 05:41 [place] % (Auto) 9.8 % (0.0-7.3) H 08/08/21 05:41 Eos % (Auto) 5.4 % (0.0-4.3) H 08/08/21 05:41 Baso % (Auto) 0.9 % (0.0-1.8) 08/08/21 05:41 Lymph # (Auto) 1.9 K/mm3 (1.2-5.4) 08/08/21 05:41 [place] # (Auto) 0.5 K/mm3 (0.0-0.8) 08/08/21 05:41 Eos # (Auto) 0.3 K/mm3 (0.0-0.4) 08/08/21 05:41 Baso # (Auto) 0.0 K/mm3 (0.0-0.1) 08/08/21 05:41 Seg Neutrophils % 45.2 % (40.0-70.0) 08/08/21 05:41 Seg Neutrophils # 2.3 K/mm3 (1.8-7.7) 08/08/21 05:41 PT 11.8 Sec. (12.2-14.9) L 08/07/21 04:13 INR 0.78 (0.87-1.13) L 08/07/21 04:13 APTT 24.9 Sec. (24.2-36.6) 08/07/21 04:13 D-Dimer 1095.95 ng/mlDDU (0-234) H 08/07/21 01:02 Heparin Anti-Xa Level 0.44 U.I./ml (0.3-0.7) 08/08/21 14:22 Sodium 141 mmol/L (137-145) 08/08/21 05:41 Potassium 4.3 mmol/L (3.6-5.0) 08/08/21 05:41 Chloride 108.5 mmol/L (98-107) H 08/08/21 05:41 Carbon Dioxide 20 mmol/L (22-30) L 08/08/21 05:41 Anion Gap 17 mmol/L 08/08/21 05:41 BUN 9 mg/dL (7-17) 08/08/21 05:41 Creatinine 1.0 mg/dL (0.6-1.2) 08/08/21 05:41 Estimated GFR > 60 ml/min 08/08/21 05:41 BUN/Creatinine Ratio 9 % 08/08/21 05:41 Glucose 112 mg/dL (65-100) H 08/08/21 05:41 Calcium 8.3 mg/dL (8.4-10.2) L 08/08/21 05:41 Total Bilirubin < 0.20 mg/dL (0.1-1.2) 08/07/21 01:02 AST 12 units/L (5-40) 08/07/21 01:02 ALT 10 units/L (7-56) 08/07/21 01:02 Alkaline Phosphatase 79 units/L (35-129) 08/07/21 01:02 Troponin T < 0.010 ng/mL (0.00-0.029) 08/07/21 02:33 Total Protein 5.8 g/dL (6.3-8.2) L 08/07/21 01:02 Albumin 3.6 g/dL (3.9-5) L 08/07/21 01:02 Albumin/Globulin Ratio 1.6 % 08/07/21 01:02 [place]/IV: Voiding Method Toilet Active Medications - Current Medications Current Medications: Generic Name Dose Route Start Last Admin Trade Name Freq PRN Reason Stop Dose Admin Acetaminophen 650 mg 08/07/21 05:30 Acetaminophen 325 Mg Tab PO Q4H PRN Pain MILD(1-3)/Fever >100.5/BLACKMAN Albuterol 2.5 mg 08/07/21 05:30 Albuterol 2.5 Mg/3 Ml Nebu IH Q3HRT PRN Shortness Of Breath Albuterol/Ipratropium 1 ampul 08/07/21 08:00 08/08/21 14:54 Ipratropium/Albuterol Sulfate 3 Ml Ampul.Neb IH 1 ampul Q6HRT JEFF Administration Atorvastatin Calcium 40 mg 08/07/21 22:00 08/07/21 21:31 Atorvastatin 40 Mg Tab PO 40 mg QHS JEFF Administration Famotidine 20 mg 08/07/21 10:00 08/08/21 13:06 Famotidine 20 Mg Tab PO 20 mg BID JEFF Administration Heparin Sodium (Porcine) 3,800 unit 08/07/21 04:05 Heparin 10,000 Units/10 Ml Vial 40 unit/kg (3800 unit) IV Q6H PRN Anti-Xa Assay < 0.1 units/ml Heparin Sodium/Sodium Chloride 25,000 unit in 500 mls @ 29 mls/hr 08/07/21 05 :00 08/08/21 15:22 Heparin/ 0.45% Nacl-25,000 Unit/500 Ml IV 1,200 units/hr TITR JEFF 24 mls/hr Titration Protocol 1,450 UNITS/HR Ondansetron HCl 4 mg 08/07/21 05:30 Ondansetron 4 Mg/2 Ml Inj IV Q8H PRN Nausea And Vomiting Sodium Chloride 10 ml 08/07/21 04:12 Sodium Chloride 0.9% 10 Ml Flush Syringe IV PRN PRN LINE FLUSH Sodium Chloride 10 ml 08/07/21 10:00 08/08/21 13:06 Sodium Chloride 0.9% 10 Ml Flush Syringe IV 10 ml BID JEFF Administration
[2021-08-09] MEDS: HEPARIN/ 0.45% NACL DRIP 25,000 UNIT/500 ML BAG IV SCH ×2 (00:47→22:52)
[2021-08-09 05:16] LABS: Hematocrit 37.7 % (30.3-42.9); Hemoglobin 12.5 gm/dl (10.1-14.3)
[2021-08-09] MEDS: IPRATROPIUM/ALBUTEROL SULFATE 3 ML AMPUL.NEB IH SCH ×2 (08:57→16:13)
[2021-08-09] MEDS: FAMOTIDINE 20 MG TAB PO SCH ×2 (10:19→21:22)
--- NOTE | 2021-08-09 15:14 | Progress Note ---
Assessment and Plan 61 y/o female with prior history of VTE of unknown etiology at that time admitted with recurrent pulmonary embolism. 08/09/21: Ambulatory pulse ox prior to discharge. Agree with Eliolive at discharge indefinitely. No objection to discharge to home. Can follow up with Cameron in 10-14 days. Will need hypercoag work up if not done as outpatient. 08/08/21: Patient off floor for echo. Follow up results. Wean FiO2 to off. Oral anticoagulation. 1. Agree with heparin drip 2. Transition to oral therapy soon 3. Can consult vascular but likely not a candidate/need for ekos 4. Needs echo to see if patient has pulmonary HTN related to this or any evidence of right heart strain 5. Patient anxious to go. Please have CM see her to find out her insurance and other resources. This will help to determine what form of oral anticoagulation we can discharge home. Long discussion with patient at bedside. She is going to be on lifelong anticoagulation. However she needs hypercoag work up if not done as this could be hereditary. We go to office and review my partners records as well. Thank you for this consult. Subjective Date of service: 08/09/21 Interval history: 1 liter of oxygen. No acute events. Echo normal. Case management gave 10$ co- pay card for jose. Objective Vital Signs - 12hr 08/09/21 08/09/21 08/09/21 05:10 08:00 09:02 Temperature 98.3 F Pulse Rate 84 84 Pulse Rate [ 83 Anterior Bilateral Throughout] Respiratory 19 Rate Respiratory 16 Rate [Anterior Bilateral Throughout] Blood Pressure 134/85 O2 Sat by Pulse 99 100 Oximetry 08/09/21 11:00 Temperature Pulse Rate Pulse Rate [ Anterior Bilateral Throughout] Respiratory Rate Respiratory Rate [Anterior Bilateral Throughout] Blood Pressure O2 Sat by Pulse 99 Oximetry Constitutional: no acute distress, alert, other (obese) Eyes: non-icteric ENT: oropharynx moist Neck: supple, no lymphadenopathy, no JVD Effort: normal Ascultation: Bilateral: clear Percussion: Bilateral: not dull Tactile fremitus: Bilateral: normal Cardiovascular: regular rate and rhythm Gastrointestinal: normoactive bowel sounds, soft, non-tender Extremities: no cyanosis, no edema, pink and warm, pulses normal Neurologic: normal mental status, non-focal exam CBC and BMP: 08/09/21 04:50 08/08/21 05:41 ABG, PT/INR, D-dimer: PT/INR, D-dimer PT 11.8 Sec. (12.2-14.9) L 08/07/21 04:13 INR 0.78 (0.87-1.13) L 08/07/21 04:13 D-Dimer 1095.95 ng/mlDDU (0-234) H 08/07/21 01:02 Abnormal lab findings: Abnormal Labs 08/07/21 08/07/21 08/07/21 01:02 01:02 01:02 MCH 26 L Lymph % (Auto) 37.9 H [place] % (Auto) 10.3 H Eos % (Auto) 6.2 H PT INR 0.81 L D-Dimer 1095.95 H Heparin Anti-Xa Level Chloride 108.9 H Carbon Dioxide Glucose 123 H Calcium Total Protein 5.8 L Albumin 3.6 L 08/07/21 08/07/21 08/07/21 04:13 09:39 21:22 MCH Lymph % (Auto) [place] % (Auto) Eos % (Auto) PT 11.8 L INR 0.78 L D-Dimer Heparin Anti-Xa Level 0.16 L 0.73 H Chloride Carbon Dioxide Glucose Calcium Total Protein Albumin 08/08/21 08/08/21 08/08/21 05:41 05:41 05:41 MCH 26 L Lymph % (Auto) 38.7 H [place] % (Auto) 9.8 H Eos % (Auto) 5.4 H PT INR D-Dimer Heparin Anti-Xa Level 1.13 H Chloride 108.5 H Carbon Dioxide 20 L Glucose 112 H Calcium 8.3 L Total Protein Albumin
--- NOTE | 2021-08-09 19:17 | Progress Note ---
Hospitalist Physical - Constitutional Vitals: Temp Pulse Resp BP Pulse Ox 98.4 F 84 18 154/94 99 08/09/21 15:32 08/09/21 18:01 08/09/21 15:32 08/09/21 15:32 08/09/21 11:00 General appearance: Present: no acute distress, obese HEART Score - HEART Score Troponin: Troponin T < 0.010 ng/mL (0.00-0.029) 08/07/21 02:33 Results - Labs CBC & Chem 7: 08/09/21 04:50 08/08/21 05:41 Labs: Laboratory Last Values WBC 5.0 K/mm3 (4.5-11.0) 08/08/21 05:41 RBC 4.85 M/mm3 (3.65-5.03) 08/08/21 05:41 Hgb 12.5 gm/dl (10.1-14.3) 08/09/21 04:50 Hct 37.7 % (30.3-42.9) 08/09/21 04:50 MCV 83 fl (79-97) 08/08/21 05:41 MCH 26 pg (28-32) L 08/08/21 05:41 MCHC 31 % (30-34) 08/08/21 05:41 RDW 14.9 % (13.2-15.2) 08/08/21 05:41 Plt Count 203 K/mm3 (140-440) 08/09/21 04:50 Lymph % (Auto) 38.7 % (13.4-35.0) H 08/08/21 05:41 [place] % (Auto) 9.8 % (0.0-7.3) H 08/08/21 05:41 Eos % (Auto) 5.4 % (0.0-4.3) H 08/08/21 05:41 Baso % (Auto) 0.9 % (0.0-1.8) 08/08/21 05:41 Lymph # (Auto) 1.9 K/mm3 (1.2-5.4) 08/08/21 05:41 [place] # (Auto) 0.5 K/mm3 (0.0-0.8) 08/08/21 05:41 Eos # (Auto) 0.3 K/mm3 (0.0-0.4) 08/08/21 05:41 Baso # (Auto) 0.0 K/mm3 (0.0-0.1) 08/08/21 05:41 Seg Neutrophils % 45.2 % (40.0-70.0) 08/08/21 05:41 Seg Neutrophils # 2.3 K/mm3 (1.8-7.7) 08/08/21 05:41 PT 11.8 Sec. (12.2-14.9) L 08/07/21 04:13 INR 0.78 (0.87-1.13) L 08/07/21 04:13 APTT 24.9 Sec. (24.2-36.6) 08/07/21 04:13 D-Dimer 1095.95 ng/mlDDU (0-234) H 08/07/21 01:02 Heparin Anti-Xa Level 0.76 U.I./ml (0.3-0.7) H 08/09/21 15:46 Sodium 141 mmol/L (137-145) 08/08/21 05:41 Potassium 4.3 mmol/L (3.6-5.0) 08/08/21 05:41 Chloride 108.5 mmol/L (98-107) H 08/08/21 05:41 Carbon Dioxide 20 mmol/L (22-30) L 08/08/21 05:41 Anion Gap 17 mmol/L 08/08/21 05:41 BUN 9 mg/dL (7-17) 08/08/21 05:41 Creatinine 1.0 mg/dL (0.6-1.2) 08/08/21 05:41 Estimated GFR > 60 ml/min 08/08/21 05:41 BUN/Creatinine Ratio 9 % 08/08/21 05:41 Glucose 112 mg/dL (65-100) H 08/08/21 05:41 Calcium 8.3 mg/dL (8.4-10.2) L 08/08/21 05:41 Total Bilirubin < 0.20 mg/dL (0.1-1.2) 08/07/21 01:02 AST 12 units/L (5-40) 08/07/21 01:02 ALT 10 units/L (7-56) 08/07/21 01:02 Alkaline Phosphatase 79 units/L (35-129) 08/07/21 01:02 Troponin T < 0.010 ng/mL (0.00-0.029) 08/07/21 02:33 Total Protein 5.8 g/dL (6.3-8.2) L 08/07/21 01:02 Albumin 3.6 g/dL (3.9-5) L 08/07/21 01:02 Albumin/Globulin Ratio 1.6 % 08/07/21 01:02 [place]/IV: Voiding Method Toilet Active Medications - Current Medications Current Medications: Generic Name Dose Route Start Last Admin Trade Name Freq PRN Reason Stop Dose Admin Acetaminophen 650 mg 08/07/21 05:30 Acetaminophen 325 Mg Tab PO Q4H PRN Pain MILD(1-3)/Fever >100.5/BLACKMAN Albuterol 2.5 mg 08/07/21 05:30 Albuterol 2.5 Mg/3 Ml Nebu IH Q3HRT PRN Shortness Of Breath Albuterol/Ipratropium 1 ampul 08/09/21 08:00 08/09/21 16:13 Ipratropium/Albuterol Sulfate 3 Ml Ampul.Neb IH 1 ampul TIDRT JEFF Administration Atorvastatin Calcium 40 mg 08/07/21 22:00 08/08/21 21:04 Atorvastatin 40 Mg Tab PO 40 mg QHS JEFF Administration Famotidine 20 mg 08/07/21 10:00 08/09/21 10:19 Famotidine 20 Mg Tab PO 20 mg BID JEFF Administration Heparin Sodium (Porcine) 3,800 unit 08/07/21 04:05 Heparin 10,000 Units/10 Ml Vial 40 unit/kg (3800 unit) IV Q6H PRN Anti-Xa Assay < 0.1 units/ml Heparin Sodium/Sodium Chloride 25,000 unit in 500 mls @ 29 mls/hr 08/07/21 05:00 08/09/21 17:30 Heparin/ 0.45% Nacl-25,000 Unit/500 Ml IV 1,100 units/hr TITR JEFF 22 mls/hr Titration Protocol 1,450 UNITS/HR Ondansetron HCl 4 mg 08/07/21 05:30 Ondansetron 4 Mg/2 Ml Inj IV Q8H PRN Nausea And Vomiting Sodium Chloride 10 ml 08/07/21 04:12 Sodium Chloride 0.9% 10 Ml Flush Syringe IV PRN PRN LINE FLUSH Sodium Chloride 10 ml 08/07/21 10:00 08/09/21 10:19 Sodium Chloride 0.9% 10 Ml Flush Syringe IV 10 ml BID JEFF Administration
[2021-08-09] MEDS ORDERED: IPRATROPIUM/ALBUTEROL SULFATE 3 ML AMPUL.NEB IH SCH (20:00)
[2021-08-10] MEDS: FAMOTIDINE 20 MG TAB PO SCH (11:03)
[2021-08-10 13:18] LABS: Protein S, Free 99 % normal (50-147); Protein S, Total 95 % normal (70-140)
--- NOTE | 2021-08-10 14:16 | Discharge Summary ---
Providers - Providers Date of Admission: 08/07/21 05:30 Attending physician: KANA EASTON MD 08/07/21 05:30 Consult to Physician [CONS] Routine Comment: Consulting Provider: REBECA ROGERS Physician Instructions: Reason For Exam: pe Primary care physician: [employer] Hospitalization Condition: Stable Hospital course: Patient remained hemodynamically stable without significant tachycardia or lightheadedness. Was placed on supplemental O2 which could be weaned on the day of discharge. According to patient's nurse, patient was able to walk on room air maintaining normal O2 sats and did not qualify for home O2. However, patient was experiencing some dyspnea with exertion. She is morbidly obese. She was advised to lose weight and progress activity as tolerated. She was advised lifelong anticoagulation therapy. She was given a prescription for Eliquis and a coupon for co-pay discount. She was advised to stay off work for 1 week pending further evaluation by her PCP. She was advised to see Dr. Salomon, customer logistics manager in 2 weeks for follow-up. Discharge instruction given to patient: Stay off work for 1 week Increasing physical activity as tolerated. See Dr. Salomon, customer logistics manager for follow-up in 2 weeks You need to take a blood thinner medicine lifelong Heart healthy diet is recommended as well as losing weight. Discharge instructions given to patient: Stay off work for 1 week Increasing physical activity as tolerated. See Dr. Salomon, customer logistics manager for follow-up in 2 weeks You need to take a blood thinner medicine lifelong Heart healthy diet is recommended as well as losing weight. Disposition: 01 HOME / SELF CARE / HOMELESS Final Discharge Diagnosis (Prints w/discharge instructions): Bilateral pulmonary embolism likely triggered by injury to left lower extremity. Left peroneal acute DVT following injury. History of. Acute hypoxic respiratory failure, resolved. Morbid obesity Exam - Constitutional Vitals: Temp Pulse Resp BP Pulse Ox 98.4 F 86 18 136/88 97 08/10/21 12:59 08/10/21 12:59 08/10/21 12:59 08/10/21 12:59 08/10/21 12:59 Plan Activity: advance as tolerated Diet: low fat, low cholesterol, low salt Additional Instructions: Stay off work for 1 week. Increasing physical activity as tolerated. See Dr. Salomon, customer logistics manager for follow-up in 2 weeks. You need to take a blood thinner medicine lifelong. Heart healthy diet is recommended as well as losing weight. Follow up with: PRIMARY CARE, [Primary Care Provider] - 3-5 Days REEMA SALOMON MD [Staff Physician] - 14 Days Prescriptions: Apixaban [Eliquis starter pack] 5 mg PO BID #1 pack Albuterol Mdi (or & Nicu Only) [ProAir HFA Inhaler] 2 puff IH QID PRN #8.5 gram PRN Reason: Shortness Of Breath
[2021-08-10 16:47] VITALS: BP 140/81
== END 2021-08-10 17:29 | disposition home or self-care (01) | DRG 299 ==
LOC: ED 16:12 → 4A 08-07 05:30
PROVIDERS: ADMIT Hospitalist; ATTEND Internal Medicine
DX: I82.452 Acute embolism and thrombosis of left peroneal vein (principal); I26.99 Other pulmonary embolism without acute cor pulmonale; Z68.1 Body mass index [BMI] 19.9 or less, adult; I10 Essential (primary) hypertension; F17.210 Nicotine dependence, cigarettes, uncomplicated; E66.01 Morbid (severe) obesity due to excess calories; Z79.01 Long term (current) use of anticoagulants; Z98.51 Tubal ligation status
CPT/HCPCS: 36415; 71046; 71275; 80048; 80053; 84484; 85014; 85018; 85025; 85049; 85210; 85220; 85301; 85305; 85379; 85520; 85610; 85730; 93005; 93010; 93306; 93970; 94640; 94760; G0378; J3490; C8929; J1644; Q9967